=== PATIENT | male | born 1955 | race Caucasian/White ===

== ENCOUNTER 2021-03-24 13:01 | Emergency (ER) | payer MEDICARE, OTHER ==
[~2021-03-24] VITALS: Ht 177.8 cm; Wt 92.1 kg
[2021-03-24] MEDS ORDERED: ASA81BEC PO (13:14)
[2021-03-24] MEDS ORDERED: LEVO-T100 MCG PO (13:15)
[2021-03-24] MEDS ORDERED: VITAMIN D310 MC3 PO (13:15)
[2021-03-24] MEDS ORDERED: GLIPIZIDE 10 MG10 MG PO (13:15)
[2021-03-24] MEDS ORDERED: SUPER THERAVIT1 EACH PO (13:16)
[2021-03-24] MEDS ORDERED: MELOXICAM15 MG PO (13:16)
[2021-03-24] MEDS ORDERED: LISINOPRIL-HCT1 EAC1 PO (13:16)
[2021-03-24] MEDS ORDERED: OMEPRAZOLE 20 M20 M1 PO (13:17)
[2021-03-24] MEDS ORDERED: CIALIS5 MG PO (13:17)
[2021-03-24] MEDS ORDERED: NATURAL VEGETA283 GM PO (13:17)
[2021-03-24] MEDS ORDERED: SIMVASTATIN80 MG PO (13:17)
[2021-03-24] MEDS ORDERED: PRESERVISION A1 EAC2 PO (13:18)
[2021-03-24 13:42] LABS: URINE BILIRUBIN NEGATIVE (Negative); URINE BLOOD NEGATIVE (Negative); URINE CLARITY CLEAR; URINE COLOR STRAW; URINE GLUCOSE-RANDOM NEGATIVE (Negative); URINE KETONES NEGATIVE (Negative); URINE LEUKOCYTES-REFLEX NEGATIVE (Negative); URINE NITRITE-REFLEX NEGATIVE (Negative); URINE PROTEIN NEGATIVE (Negative); URINE SPECIFIC GRAVITY <= 1.005 (1.005-1.030); URINE UROBILINOGEN 0.2 E.U./dl (0.2-1.0)
[2021-03-24 13:48] LABS: ABSOLUTE BASOPHILS 0.1 thou/uL (0.0-0.2); ABSOLUTE EOSINOPHILS 0.3 thou/uL (0.0-0.7); ABSOLUTE LYMPHOCYTES 0.9 thou/uL (0.8-5.3); ABSOLUTE MONOCYTES 0.5 thou/uL (0.0-1.2); ABSOLUTE NEUTROPHILS 4.6 thou/uL (1.6-8.1); EOSINOPHILS 4.7 %; HEMATOCRIT 41.3 % (42.0-52.0); HEMOGLOBIN 14.4 gm/dL (14.0-18.0); LYMPHOCYTES 14.3 %; MCH 30.3 pg (26.0-34.0); MCV 86.8 fL (80.0-100.0); MONOCYTES 7.7 %; MPV 7.3 fl. (7.2-11.1); NUCLEATED RBCS 0 /100WBC; PLATELET COUNT* 225 thou/uL (150-400); POLYS 72.3 %; RBC 4.76 mil/uL (4.50-6.00); RDW-CV 13.7 % (10.5-14.5); WBC 6.4 thou/uL (4.0-11.0)
[2021-03-24 14:00] LABS: POTASSIUM 3.8 mmol/L (3.5-5.1)
[2021-03-24 14:05] LABS: TOTAL BILIRUBIN 0.7 mg/dL (<0.1-1.0); TOTAL PROTEIN 7.5 g/dL (6.4-8.2)
[2021-03-24] MEDS ORDERED: NORCO5 PO ×2 (14:45→14:53)
[2021-03-24 15:05] VITALS: BP 134/62
--- NOTE | 2021-03-25 10:10 | EKG ---
[place] [address] ELECTROCARDIOGRAM REPORT Name: CARIROSALINO Marion Room: [facility]#: [id number] Admission: 03/24/21 Attend Phys: Discharge: 03/24/21 Date of : 51 Date of Service: 03/24/21 1328 Report #: [id number] THIS REPORT FOR: //name// [facility] ED Test Date: 2021-03-24 Test Time: 13:28:46 Pat Name: ROSALINO ALCALA Department: Room: Gender: [employer] Work[employer]: [facility] [employer] [facility] : 1955 Requested By: Chely Flores Order Number: [id number] MD: Didier Brooks Measurements Intervals [place] Rate: 70 P: 19 OR: 164 QRS: -19 QRSD: 128 T: 49 QT: 406 QTc: 439 Interpretive Statements Sinus rhythm Right bundle branch block No previous ECG available for comparison Electronically Signed On 03-25-2021 10:10:15 FAMILY LITERACY COORDINATOR by Didier Brooks [email or web address] <ELECTRONICALLY SIGNED> By: Didier Brooks MD, [facility] 03/25/21 1010 1328 1328 Didier Brooks MD, FACC /EPI
== END 2021-03-24 15:05 | disposition home or self-care (01) ==
LOC: M.ERS 13:01
PROVIDERS: Physician Assistant
DX: R91.8 Other nonspecific abnormal finding of lung field (principal); R10.31 Right lower quadrant pain; I10 Essential (primary) hypertension; E11.9 Type 2 diabetes mellitus without complications; Z98.890 Other specified postprocedural states; Z79.82 Long term (current) use of aspirin; Z79.899 Other long term (current) drug therapy

== ENCOUNTER → 2021-03-29 | Outpatient (CLI) | payer MEDICARE, OTHER ==
[~2021-03-29] MED LIST: ASA81BEC PO; CIALIS5 MG PO; GLIPIZIDE 10 MG10 MG PO; LEVO-T100 MCG PO; LISINOPRIL-HCT1 EAC1 PO; MELOXICAM15 MG PO; NATURAL VEGETA283 GM PO; NORCO5 PO; OMEPRAZOLE 20 M20 M1 PO; PRESERVISION A1 EAC2 PO; SIMVASTATIN80 MG PO; SUPER THERAVIT1 EACH PO; VITAMIN D310 MC3 PO
== END ==
LOC: M.CT 12:25
PROVIDERS: ATTEND Family Medicine
DX: R91.8 Other nonspecific abnormal finding of lung field (principal)